=== PATIENT | male | born 1995 | race African-American/Black ===

== ENCOUNTER 2018-09-29 00:35 | Emergency (ER) | payer SELFPAY ==
[~2018-09-29] VITALS: Ht 180.3 cm; Wt 87.0 kg
[2018-09-29 01:05] VITALS: BP 131/72
[2018-09-29] MEDS ORDERED: IBUPROFEN 600MG TABLET PO ONE (01:15)
[2018-09-29] MEDS ORDERED: VISCOUS LIDOCAINE 2% 15 ML UDC MM ONE (01:30)
== END 2018-09-29 02:33 | disposition home or self-care (01) ==
LOC: ER 00:35
DX: J02.9 Acute pharyngitis, unspecified (principal); J45.909 Unspecified asthma, uncomplicated
CPT/HCPCS: 87070; 87430; 99283

== ENCOUNTER 2018-09-30 08:42 | Emergency (ER) | payer MEDICAID ==
[~2018-09-30] VITALS: Ht 177.8 cm; Wt 82.0 kg
[2018-09-30] MEDS ORDERED: ACETAMINOPHEN 325MG TABLET PO ONE (09:15)
[2018-09-30] MEDS ORDERED: IBUPROFEN 800MG TABLET PO ONE (09:30)
[2018-09-30 10:04] VITALS: BP 131/73
== END 2018-09-30 10:11 | disposition home or self-care (01) ==
LOC: ER 08:42
DX: J02.9 Acute pharyngitis, unspecified (principal); R50.9 Fever, unspecified; J45.909 Unspecified asthma, uncomplicated; F12.10 Cannabis abuse, uncomplicated
CPT/HCPCS: 99283

== ENCOUNTER 2020-10-28 22:31 | Emergency (ER) | payer MEDICAID ==
[~2020-10-28] VITALS: Ht 182.9 cm; Wt 97.0 kg
[2020-10-28 22:33] VITALS: BP 141/69
[2020-10-29] MEDS ORDERED: LORATADINE 10MG TABLET PO ONE
== END 2020-10-29 00:55 | disposition left against medical advice (07) ==
LOC: ER 22:31
DX: R09.81 Nasal congestion (principal); F12.10 Cannabis abuse, uncomplicated; J45.909 Unspecified asthma, uncomplicated; Z91.010 Allergy to peanuts
CPT/HCPCS: 93005; 99283